=== PATIENT | female | born 1945 | race Caucasian/White ===

== ENCOUNTER 2022-12-18 06:22 | Day surgery (SDC) | payer MEDICARE, BC, MEDICAID ==
[~2022-12-18] VITALS: Ht 162.6 cm; Wt 94.0 kg
[~2022-12-18 06:22] MED LIST: ASPIR-LOW81 MG PO; ATENOLOL25 MG PO; ATENOLOL50 MG PO; CALCIUM500 M1 PO; CIPRO500 MG PO; HYDROCHLOROTH12.5 M1 PO; LEVOTHYROXINE125 MCG PO; LIPITOR10 MG PO; LISINOPRIL20 MG PO; MAG-OXIDE400 MG PO; MULTI-VITAMIN1 EACH PO; NORCO 5-325 TA1 EACH PO; OMEPRAZOLE20 MG PO; ONE DAILY FOR1 EACH PO; PYRIDIUM200 MG PO; ULTRAM50 MG PO
[2022-12-18 06:43] VITALS: BP 116/62
--- NOTE | 2022-12-18 08:06 | NUR ---
PT IN OVERALL GOOD SPIRITS. I EXERCISED MINISTRY OF PRESENCE PT TALKED OF FAMILY. PT CONSENTED TO PRAYER. PRAYED FOR SUCCESSFUL PROCEDURE AND ONGOING BLESSING.
--- NOTE | 2022-12-18 08:28 | NUR ---
12/18/22 0828 Kate Spangler 0816-PATIENT ARRIVED TO PACU ON 3L NC AWAKE O2 SAT 86% PATIENT ENCOURAGED TO TAKE DEEP BREATHES. O2 SAT INCREASED TO 92%. STOP BANG SCORE OF 4 WILL GIVE SLEEP APNEA HANDOUT. ABDOMEN SOFT. IVF INFUSING. PASSING GAS. HOB ELEVATED LAYING LEFT LATERAL. 0828-PATIENT AWAKE DENIES PAIN OR NAUSEA. LAYING LEFT LATERAL PASSING GAS. 3L NC 94% DR. MAGANA AT BEDSIDE TALKING TO PATIENT.
[2022-12-18 09:20] VITALS: BP 106/84
--- NOTE | 2022-12-18 09:37 | NUR ---
[id number]: PT ARRIVES TO DS RM 9 FROM PACU VIA STRETCHER AWAKE AND ALERT. PT DENIES PAIN AND IS PASSING FLATUS. PT DENIES NAUSEA AND TOLERATES WATER, PROVIDED COFFEE AND CRACKERS. CONT PULSE OXIMETER REMAINS IN PLACE, SATS GREATER THAN 94% ON RA. CALL LIGHT WITHIN REACH. [id number]: PT SISTER CALLED FOR SAFE RIDE HOME, COMING FROM OUT OF TOWN AND SHOULD BE HERE IN APPROX 30 MINUTES. 0940: PT UP TO BATHROOM WITH STEADY GAIT, DENIES DIZZINESS. PT BACK TO DS RM 9 TO GET DRESSED.
[2022-12-18 10:24] VITALS: BP 92/68
--- NOTE | 2022-12-18 10:49 | NUR ---
1020: PT SITTING ON SIDE OF BED DRESSED AND READY FOR DC. SISTER HAS ARRIVED AND IS WAITING AT HOSPITAL ENTRANCE IN PERSONAL VEHICLE. DC INSTRUCTIONS PRESENTED VERBALLY AND WRITTEN, PT VERBALIZES AN UNDERSTANDING. PT DC FROM DS RM 9 VIA WC TO HOME.
--- NOTE | 2022-12-19 08:16 | OR ---
[facility] [address] [place], [place] [address] Signed DATE OF OPERATION: 12/18/2022 SURGEON: Cintia Ravi MD PREOPERATIVE DIAGNOSES: 1. Sister with rectal cancer at age 62. 2. Personal history of colonic polyps. 3. Diverticulosis. 4. 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 5. Internal hemorrhoids. 6. Tattoo opposite the ileocecal valve. POSTOPERATIVE DIAGNOSES: 1. Minimal to moderate sigmoid diverticulosis. 2. Minimal to moderate internal hemorrhoids. 3. Tattoo opposite the ileocecal valve. 4. 5 mm polyp at 100 cm in proximal transverse colon. 5. 5 mm polyps x2 at 90 cm in mid transverse colon. 6. 5 mm polyps x2 at 55 cm in left colon. 7. 7 mm sessile polyp x1 at 32 cm in sigmoid colon. 8. 1.5 cm lipoma at 85 cm. PROCEDURE: Colonoscopy with hot biopsy. ESTIMATED BLOOD LOSS: None. INDICATIONS: Bessie is a 77-year-old female, asked to see me for a followup colonoscopy. We know her sister of rectal cancer at age 62. Bessie had told me it was quite awful. 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 She is also known to have diverticulosis as well as some internal hemorrhoids. She has a lipoma at about 65 cm. It is around 1.5 cm in diameter. It has been there on every colonoscopy and it has been biopsied previously. Bessie had come initially at age 60 and we did two colonoscopies during that same year. We had left a tattoo just opposite the ileocecal valve. We had actually requested that she return in three years but for some reason, she waited 10 years. She came at age 71 and again we saw the lipoma up at 65 cm along with diverticulosis and internal hemorrhoids. She had used 6 mg of Versed and 125 mcg of fentanyl. She has been on the five year plan subsequently. She currently has no Electronically Signed By: CINTIA RAVI MD 12/19/22 0816 PATIENT NAME: BESSIE MASON OPERATIVE REPORT DATE OF : 47 REPORT #: [id number] PHYSICIAN: CINTIA RAVI MD PCP: GUADALUPE MUSTAFA MD REPORT IS CONFIDENTIAL AND NOT TO BE RELEASED WITHOUT AUTHORIZATION [facility] [address] [place] [id number] Signed lower GI complaints. In the office, I gave her a pamphlet on colonoscopy. She recalls the test well. There is risk including, but not limited to gas bloating, crampy abdominal pain, bleeding, perforation requiring surgery, and missed diagnosis. We also reviewed the written instructions for a bowel prep line by line. She likes to use Propel in place of the Gatorade. The Gatorade seems to upset her stomach. 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 She said that right shoulder is doing much better with physical therapy. She recalls the need for IV conscious sedation. She has another sister who is available to take her home. She had expressed understanding and wished to proceed. PROCEDURE NOTE: Bessie was taken into our endoscopy suite and placed in the left lateral decubitus position. She was given a total of 4 mg of Versed and 100 mcg of fentanyl. Unfortunately, her blood pressure was low and her O2 sats came in the room at 90%. She continues to be a daily smoker. She needed constant airway management by our nurse. She was frequently awake and moaning in pain and we had to go very slow. Unfortunately, it is fairly easy to pass the scope through Bessie's colon. In addition, her prep was quite good. However, in the future, she really needs monitored anesthesia care with propofol infusion. A digital rectal exam had been done and there were really no external hemorrhoids. She had good sphincter tone. There were no masses. The adult colonoscope had been introduced and advanced slowly particularly through the sigmoid colon. We eventually made it around to the cecum itself. Her prep was quite good. We could easily see the appendiceal orifice and the ileocecal valve. We could see the tattoo opposite the ileocecal valve. No evidence of any recurrent polyp in that area. We had taken pictures throughout for photodocumentation. We also saw the lipoma back at around 85 cm, probably in the distal transverse colon or proximal left colon. The above-mentioned polyps were visualized and removed with the help of hot biopsy forceps. Her largest polyp was back at 32 cm. We felt confident that all the polyps had been destroyed. Once in the rectum, the scope had been retroflexed and there were minimal to moderate internal hemorrhoid columns. We also noticed the diverticulosis as we came through the sigmoid colon. Again, they were moderate in size, few to moderate in number and scattered about. After this, the gas was suctioned out and the colonoscope removed. Overall, Bessie tolerated the procedure well. RECOMMENDATIONS: I will see Bessie back in my office in 7 to 14 days to review her results. She should undergo monitored anesthesia care in the future as she is getting older and continuing to smoke as described above. She can return as early as 3 years, but not more than 5. Electronically Signed By: CINTIA RAVI MD 12/19/22 0816 PATIENT NAME: BESSIE MASON OPERATIVE REPORT DATE OF : 47 REPORT #: [id number] PHYSICIAN: CINTIA RAVI MD PCP: GUADALUPE MUSTAFA MD REPORT IS CONFIDENTIAL AND NOT TO BE RELEASED WITHOUT AUTHORIZATION [address] [address] Signed Cintia Ravi MD [facility] /[id number] cc: Dr. Guadalupe Ravi MD Copies: CINTIA ARVI MD ~ Electronically Signed By: CINTIA RAVI MD 12/19/22 0816 PATIENT NAME: BESSIE MASON OPERATIVE REPORT DATE OF : 47 REPORT #: [id number] PHYSICIAN: CINTIA RAVI MD PCP: GUADALUPE MUSTAFA MD REPORT IS CONFIDENTIAL AND NOT TO BE RELEASED WITHOUT AUTHORIZATION
== END 2022-12-18 10:30 | disposition home or self-care (01) ==
LOC: DS 06:22 → OPS 06:22 → DS 07:30 → OPS 10:30
PROVIDERS: ATTEND Colon & Rectal Surgery
DX: D12.3 Benign neoplasm of transverse colon (principal); D12.4 Benign neoplasm of descending colon; D12.5 Benign neoplasm of sigmoid colon; K63.5 Polyp of colon; C67.2 Malignant neoplasm of lateral wall of bladder; K57.30 Diverticulosis of large intestine without perforation or abscess without bleeding; I10 Essential (primary) hypertension; N20.0 Calculus of kidney; E66.09 Other obesity due to excess calories; E03.9 Hypothyroidism, unspecified; I48.91 Unspecified atrial fibrillation; K64.0 First degree hemorrhoids; D17.9 Benign lipomatous neoplasm, unspecified; Z72.0 Tobacco use; Z80.0 Family history of malignant neoplasm of digestive organs; Z86.010 Personal history of colon polyps
CPT/HCPCS: 88305; 99153; G0500; J0690; J2250; J3010; J7121

== ENCOUNTER 2023-11-07 15:52 | Emergency (ER) | payer MEDICARE, BC, MEDICAID ==
[~2023-11-07] VITALS: Ht 162.6 cm; Wt 96.5 kg
[2023-11-07] MEDS ORDERED: CELECOXIB100 MG PO (16:07)
[2023-11-07] MEDS ORDERED: OXYCODONE HCL5 MG PO (16:07)
[2023-11-07] MEDS ORDERED: BAYER CHEWABLE81 MG PO (16:08)
[2023-11-07 18:30] VITALS: BP 142/87
== END 2023-11-07 18:30 | disposition home or self-care (01) ==
LOC: ED 15:52
DX: Z47.1 Aftercare following joint replacement surgery (principal); Z96.652 Presence of left artificial knee joint; I10 Essential (primary) hypertension; F17.200 Nicotine dependence, unspecified, uncomplicated; Z79.82 Long term (current) use of aspirin; Z79.899 Other long term (current) drug therapy; Z79.890 Hormone replacement therapy
CPT/HCPCS: 64450; 99283-25

== ENCOUNTER 2024-10-09 08:17 | Day surgery (SDC) | payer MEDICARE, BC ==
[~2024-10-09] VITALS: Ht 160 cm; Wt 92.0 kg
[~2024-10-09 08:17] MED LIST changes: +BAYER CHEWABLE81 MG PO; +CELECOXIB100 MG PO; +IBLOOD GLUCOSE TEST STRIP 1 EA TEST VI PRN; +LACTATED RINGER'S 1,000 ML IV SCH; +LIDOCAINE HCL 1% 5 ML SDV INJ ONE; +OXYCODONE HCL5 MG PO
[2024-10-09 08:30] VITALS: BP 156/71
[2024-10-09] MEDS ORDERED: TYLENOL EXTRA500 MG PO (08:33)
[2024-10-09] MEDS ORDERED: CEFAZOLIN SODIUM 2 GM/20 ML SYR IV SCH (08:45)
[2024-10-09] MEDS ORDERED: LIDOCAINE HCL 2% 5 ML SDV ONE (09:38)
--- NOTE | 2024-10-09 10:30 | NUR ---
10/09/24 1030 Berta Carlson 1018- PT PRESENTS TO PACU, LEFT LATERAL POSITION. LR INFUSING TO RIGHT HAND, PT AWAKE BUT DROWSY. DENIES PAIN JUST A LITTLE CRAMPY AND HUNGRY. ABD SOFT, NON DISTENDED. ENCOURAGED TO PASS GAS. BREATHING EVEN AND NON LABORED ON ROOM AIR, ALL MONITORS IN PLACE. DR RING AT BEDSIDE TO DISCUSS FINDINGS.
[2024-10-09 10:53] VITALS: BP 166/59
--- NOTE | 2024-10-13 13:08 | PATH ---
[facility] [address] [place], [place] [address] Signed SPECIMEN(S): A MID TRANSVERSE BIOPSY SPECIMEN SOURCE: A. MID TRANSVERSE BIOPSY CLINICAL HISTORY: History of polyps, recent diarrhea, diverticulosis disease FINAL PATHOLOGIC DIAGNOSIS: Mid transverse colon, biopsies - Fragments of mildly hyperplastic colonic mucosa with lamina propria hemorrhage, negative for active colitis, granulomas or dysplasia. AMB MICROSCOPIC EXAMINATION: Histologic sections of all submitted blocks are examined by light microscopy. These findings, together with the gross examination, support the pathologic diagnosis. GROSS DESCRIPTION: The specimen, labeled and designated "[place], mid transverse biopsy," is received in formalin and consists of two connor soft tissue fragments, ranging from 0.4-0.5 cm. Entirely submitted in (A1). VB (under the direct supervision of a pathologist) The Gross Description was prepared using a voice recognition system. The report was reviewed for accuracy; however, sound-alike word errors, addition and/or deletions may occur. If there is any question about this report, please contact Client Services. ADDITIONAL NOTES: Immunohistochemical and/or in situ hybridization studies if performed in this case included appropriate positive controls that reacted as expected. This test was developed and its performance characteristics determined by [facility]. It has not been cleared or approved by the U.S. Food and Drug Administration. The FDA has determined that such clearance or approval is not necessary. This test is used for clinical purposes. It should not be regarded as investigational or for research. [facility] is certified under the Clinical Laboratory Improvement Amendments of 1988 (CLIA) as qualified to perform high complexity clinical laboratory testing. PATIENT NAME: BESSIE MASON PATHOLOGY DATE OF : 47 REPORT #: [id number] PHYSICIAN: ELODIA PATHOLOGY PCP: ROSANNE MUSTAFA MD REPORT IS CONFIDENTIAL AND NOT TO BE RELEASED WITHOUT AUTHORIZATION [place] [id number] [facility] [place] [place] [address] Signed PERFORMING LABORATORY: Technical component was performed by [facility], [address] [place] [address] (CLIA# [id number]). [facility] [address] [place] [id number] Diagnostician: Malathi Catalan MD Pathologist Electronically Signed 10/13/2024 Copies: ~ PATIENT NAME: BESSIE MASON PATHOLOGY DATE OF : 47 REPORT #: [id number] PHYSICIAN: ELODIA PATHOLOGY PCP: ROSANNE MUSTAFA MD REPORT IS CONFIDENTIAL AND NOT TO BE RELEASED WITHOUT AUTHORIZATION
== END 2024-10-09 11:00 | disposition home or self-care (01) ==
LOC: DS 08:17
PROVIDERS: ATTEND Surgery
PROC: 3E0H8KZ Introduction of Other Diagnostic Substance into Lower GI, Via Natural or Artificial Opening Endoscopic (ICD-10-PCS; 2024-10-09)
PROC: 0DBL8ZX Excision of Transverse Colon, Via Natural or Artificial Opening Endoscopic, Diagnostic (ICD-10-PCS; principal; 2024-10-09 09:55)
DX: K63.89 Other specified diseases of intestine (principal); K57.30 Diverticulosis of large intestine without perforation or abscess without bleeding; K21.9 Gastro-esophageal reflux disease without esophagitis; E78.00 Pure hypercholesterolemia, unspecified; I10 Essential (primary) hypertension; E89.0 Postprocedural hypothyroidism; F17.210 Nicotine dependence, cigarettes, uncomplicated; Z80.0 Family history of malignant neoplasm of digestive organs; Z86.0101 Personal history of adenomatous and serrated colon polyps; Z79.890 Hormone replacement therapy; Z79.899 Other long term (current) drug therapy; Z90.710 Acquired absence of both cervix and uterus
CPT/HCPCS: 00811; J0690; J2003; J2704